=== PATIENT | female | born 1940 | race Caucasian/White ===

== ENCOUNTER → 2018-03-01 | Outpatient (CLI) | payer MEDICARE ==
[~2018-03-01] MED LIST: ASPI-496 PO; CHOL10003 PO; CITA40TA5 PO; KRIL1CAP18 PO; LEVO100T5 PO; LEVO75TA PO; LOSA1TAB25 PO; LOSA25TA5 PO; METF500T5 PO; MULT-224 PO; OMEP-110 PO; POTA99TA3 PO; TOLT2CAP22 PO; TRAM50TA2 PO; VITA1TAB19 PO
[2018-03-01 09:39] LABS: BASOPHILS # (AUTO) 0.02 x10^3/uL (0-0.1); BASOPHILS % (AUTO) 0 % (0-1); EOSINOPHILS # (AUTO) 0.27 x10^3/uL (0-0.4); EOSINOPHILS % (AUTO) 3 % (1-7); LYMPHOCYTES # (AUTO) 1.56 x10^3/uL (1-3.4); LYMPHOCYTES % (AUTO) 16 % (22-44); MD NO; MEAN CORPUSCULAR HEMOGLOBIN 28.3 pg (27.0-34.8); MEAN CORPUSCULAR HGB CONC 34.1 g/dL (32.4-35.8); MEAN CORPUSCULAR VOLUME 83.1 fL (80-100); MEAN PLATELET VOLUME 9.3 fL (7.4-10.4); MONOCYTES # (AUTO) 0.62 x10^3/uL (0.2-0.8); MONOCYTES % (AUTO) 6 % (2-9); NEUTROPHILS # (AUTO) 7.41 x10^3/uL (1.8-6.8); NEUTROPHILS % (AUTO) 75 % (42-75); PLATELET COUNT 301 x10^3/uL (130-400); RED BLOOD COUNT 5.48 x10^6/uL (3.82-5.3); RED CELL DISTRIBUTION WIDTH 15.1 % (9.6-15.2)
[2018-03-01 09:48] LABS: MICROSCOPIC INDICATED
[2018-03-01 09:51] LABS: ANION GAP 9 mmol/L (5-15); CHLORIDE 99 mmol/L (98-107); CREATININE 0.89 mg/dL (0.55-1.02)
[2018-03-01 09:52] LABS: ALANINE AMINOTRANSFERASE 24 U/L (12-78); ALBUMIN 3.8 g/dL (3.4-5.0)
[2018-03-01 09:54] LABS: ALKALINE PHOSPHATASE 81 U/L (45-117); BILIRUBIN,TOTAL 0.5 mg/dL (0.2-1.0); INTERNATIONAL NORMALIZED RATIO 0.96 (0.93-1.1); TOTAL PROTEIN 7.8 g/dL (6.4-8.2)
[2018-03-01 10:07] LABS: CULTURE INDICATED? YES
== END | disposition home or self-care (01) ==
LOC: STAR 08:25
PROVIDERS: ATTEND Neurological Surgery
DX: Z01.818 Encounter for other preprocedural examination (principal); M48.062 Spinal stenosis, lumbar region with neurogenic claudication; M43.06 Spondylolysis, lumbar region
CPT/HCPCS: 36415; 71046; 72114; 80053; 81001; 85025; 85610; 85730; 87086; 87186; 93005

== ENCOUNTER 2018-03-10 08:49 | Inpatient (IN) | payer MEDICARE ==
[2018-03-08 11:48] LABS: CULTURE INDICATED? NO; MICROSCOPIC NOT IND
[~2018-03-10] VITALS: Ht 157.5 cm; Wt 82.0 kg
[2018-03-10] MEDS ORDERED: BUPIVACAINE/PF-EPI 0.25% 1:200K ONE (09:11)
[2018-03-10] MEDS ORDERED: BACITRACIN 50,000 UNIT ONE (09:11)
[2018-03-10] MEDS ORDERED: BACITRACIN OINT 500U/GM, 15 GM ONE (09:11)
[2018-03-10] MEDS ORDERED: THROMBIN 5,000 UNIT VIAL TP ONE (09:11)
[2018-03-10] MEDS ORDERED: BUPIVACAINE 0.25% ONE (09:11)
[2018-03-10] MEDS ORDERED: MIDAZOLAM 1 MG/ML, 2ML ONE (10:25)
[2018-03-10] MEDS ORDERED: FENTANYL PF 100 MCG/2ML ONE ×2 (10:25→12:50)
[2018-03-10] MEDS ORDERED: PROPOFOL 50 ML ONE ×2 (10:27→11:32)
[2018-03-10] MEDS ORDERED: BUPIVACAINE/PF-EPI 0.5% 1:200K IM ONE (11:00)
[2018-03-10] MEDS ORDERED: BUPIVACAINE/PF-EPI 0.25% 1:200K IM ONE (11:00)
[2018-03-10] MEDS ORDERED: ROCURONIUM 10MG/ML,5ML ONE (11:05)
[2018-03-10] MEDS ORDERED: PROPOFOL 10 MG/ML, 20ML ONE (11:05)
[2018-03-10] MEDS ORDERED: DEXAMETHASONE 4 MG/ML, 1ML ONE (11:05)
[2018-03-10] MEDS ORDERED: ONDANSETRON 2MG/ML, 2ML ONE (11:05)
[2018-03-10] MEDS ORDERED: SUCCINYLCHOLINE 20 MG/ML, 10ML ONE (11:05)
[2018-03-10] MEDS ORDERED: CEFAZOLIN 1,000 MG ONE (11:05)
[2018-03-10] MEDS ORDERED: BUPIVACAINE/PF 0.5% INFIL ONE (11:09)
[2018-03-10] MEDS ORDERED: BUPIVACAINE/PF 0.25% IM ONE (11:10)
[2018-03-10] MEDS ORDERED: ALBUTEROL SULFATE 2.5 MG/3 ML NPPB PRN (11:30)
[2018-03-10] MEDS ORDERED: OXYcodone 5 MG/5 ML ORAL.SOL UDC PO PRN (11:30)
[2018-03-10] MEDS ORDERED: LABETALOL 5MG/ML, 20ML IV PRN ×2 (11:30→15:00)
[2018-03-10] MEDS ORDERED: ONDANSETRON 2MG/ML, 2ML IV PRN ×2 (11:30→15:00)
[2018-03-10] MEDS ORDERED: HYDROcodone/APAP 7.5-325MG/15ML UDC PO PRN (11:30)
[2018-03-10] MEDS ORDERED: HYDROmorphone 2 MG/ML, 1ML IV PRN (11:30)
[2018-03-10] MEDS ORDERED: ACETAMINOPHEN 325 MG TABLET PO PRN (11:30)
[2018-03-10] MEDS ORDERED: HALOPERIDOL 5 MG/ML IV PRN (11:30)
[2018-03-10] MEDS ORDERED: DIAZEPAM 5 MG/ML, 2ML IVPush PRN (11:30)
[2018-03-10] MEDS ORDERED: EPHEDRINE 50 MG/ML, 1ML IVPush PRN (11:30)
[2018-03-10] MEDS ORDERED: hydrALAzine 20 MG/ML, 1ML IV PRN (11:30)
[2018-03-10] MEDS ORDERED: MEPERIDINE/PF 25MG/0.5ML IVPush PRN (12:00)
[2018-03-10] MEDS ORDERED: OXYcodone 5 MG/5 ML ORAL.SOL UDC ONE (12:49)
[2018-03-10] MEDS ORDERED: ACETAMINOPHEN 650 MG/20.3 ML UDC ONE (12:50)
[2018-03-10] MEDS: FENTANYL PF 100 MCG/2ML IV PRN ×2 (13:10→13:35)
[2018-03-10 14:15] VITALS: BP 97/56
[2018-03-10] MEDS ORDERED: BISACODYL 10 MG SUPP PR PRN (15:00)
[2018-03-10] MEDS ORDERED: D5%-0.9% NACL 1,000 ML IV SCH (15:00)
[2018-03-10] MEDS ORDERED: MAGNESIUM HYDROXIDE 8%, 30ML UDC PO PRN (15:00)
[2018-03-10] MEDS ORDERED: METHOCARBAMOL 750 MG TABLET PO PRN (15:00)
[2018-03-10] MEDS: LABETALOL 5MG/ML, 20ML IV SCH ×2 (15:51→23:00)
[2018-03-10] MEDS: INSULIN REGULAR 100 UNITS/ML, 3ML VIAL SQ-INSULIN SCH ×2 (16:40→20:42)
[2018-03-10] MEDS: metFORMIN 500 MG TABLET PO SCH (16:40)
[2018-03-10] MEDS: SODIUM CHLORIDE 0.9% 1,000 ML IV SCH (16:40)
[2018-03-10] MEDS: OXYcodone/APAP 5/325MG TABLET PO PRN ×2 (18:25→23:50)
[2018-03-10] MEDS: CEFAZOLIN PMX 1GM/50ML 50 ML IVPB SCH (18:25)
[2018-03-10 18:49] VITALS: BP 110/61
[2018-03-10] MEDS: CITALOPRAM 20 MG TABLET PO SCH (20:40)
[2018-03-10] MEDS ORDERED: METH750T87 PO (23:35)
[2018-03-10] MEDS ORDERED: OXYC-302 PO (23:36)
[2018-03-11] VITALS: BP 98/53
[2018-03-11] MEDS: SODIUM CHLORIDE 0.9% 1,000 ML IV SCH ×3 (02:49→23:00)
[2018-03-11] MEDS: CEFAZOLIN PMX 1GM/50ML 50 ML IVPB SCH (02:49)
[2018-03-11] MEDS: DIPHENHYDRAMINE 50 MG/ML, 1ML IVPush PRN ×3 (04:19→21:07)
[2018-03-11 04:42] VITALS: BP 97/58
[2018-03-11] MEDS: LABETALOL 5MG/ML, 20ML IV SCH ×3 (05:31→23:00)
[2018-03-11] MEDS: LEVOTHYROXINE 100 MCG TABLET PO SCH (06:12)
[2018-03-11] MEDS: INSULIN REGULAR 100 UNITS/ML, 3ML VIAL SQ-INSULIN SCH ×4 (06:14→21:00)
[2018-03-11 06:49] VITALS: BP 99/54
[2018-03-11] MEDS: SENNA/DOCUSATE TABLET PO SCH (09:05)
[2018-03-11] MEDS: MULTIVITS,STRESS FORMULA 1 TABLET PO SCH (09:05)
[2018-03-11] MEDS: OXYcodone/APAP 5/325MG TABLET PO PRN ×2 (09:05→16:22)
[2018-03-11] MEDS: MULTIVITAMIN 1 TABLET PO SCH (09:06)
[2018-03-11] MEDS: OMEPRAZOLE 20 MG CAPSULE.DR PO SCH (09:06)
[2018-03-11] MEDS: metFORMIN 500 MG TABLET PO SCH ×2 (09:06→17:11)
[2018-03-11] MEDS: TOLTERODINE LA 2MG CAP.ER.24H PO SCH (09:06)
[2018-03-11] MEDS: LOSARTAN 50MG TABLET PO SCH (09:06)
[2018-03-11] MEDS: HYDROCHLOROTHIAZIDE 12.5 MG CAPSULE PO SCH (09:07)
[2018-03-11] MEDS: ENOXAPARIN 40 MG/0.4 ML SQ SCH (12:30)
[2018-03-11 16:16] VITALS: BP 125/75
[2018-03-11 19:11] VITALS: BP 116/65
[2018-03-11] MEDS: CITALOPRAM 20 MG TABLET PO SCH (20:55)
[2018-03-11] MEDS: HYDROcodone/APAP 5/325 TABLET PO PRN (21:07)
[2018-03-12] MEDS: HYDROcodone/APAP 5/325 TABLET PO PRN ×3 (02:22→14:33)
[2018-03-12 02:30] VITALS: BP 146/68
[2018-03-12] MEDS: LEVOTHYROXINE 100 MCG TABLET PO SCH (05:26)
[2018-03-12] MEDS: DIPHENHYDRAMINE 50 MG/ML, 1ML IVPush PRN (06:43)
[2018-03-12] MEDS: LABETALOL 5MG/ML, 20ML IV SCH (07:00)
[2018-03-12] MEDS: INSULIN REGULAR 100 UNITS/ML, 3ML VIAL SQ-INSULIN SCH ×2 (07:00→11:52)
[2018-03-12 07:26] VITALS: BP 121/71
[2018-03-12] MEDS: HYDROCHLOROTHIAZIDE 12.5 MG CAPSULE PO SCH (07:54)
[2018-03-12] MEDS: MULTIVITAMIN 1 TABLET PO SCH (07:54)
[2018-03-12] MEDS: LOSARTAN 50MG TABLET PO SCH (07:54)
[2018-03-12] MEDS: metFORMIN 500 MG TABLET PO SCH (07:54)
[2018-03-12] MEDS: OMEPRAZOLE 20 MG CAPSULE.DR PO SCH (07:54)
[2018-03-12] MEDS: SODIUM CHLORIDE 0.9% 1,000 ML IV SCH (09:00)
[2018-03-12] MEDS ORDERED: TOLTERODINE LA 4MG CAP.ER.24H ONE (09:33)
[2018-03-12] MEDS: SENNA/DOCUSATE TABLET PO SCH (09:37)
[2018-03-12] MEDS: MULTIVITS,STRESS FORMULA 1 TABLET PO SCH (09:37)
[2018-03-12] MEDS: TOLTERODINE LA 2MG CAP.ER.24H PO SCH (09:38)
[2018-03-12 12:23] VITALS: BP 130/72
[2018-03-12] MEDS: ENOXAPARIN 40 MG/0.4 ML SQ SCH (13:02)
[2018-03-12 15:55] VITALS: BP 136/79
[2018-03-12] MEDS ORDERED: HYDR-3240 PO (16:17)
[2018-03-12] MEDS ORDERED: CYCL-259 PO (16:18)
== END 2018-03-12 16:30 | disposition home or self-care (01) | DRG 460 ==
LOC: SDC 08:49 → 4NOR 08:50 → SDC 14:22 → 4NOR 03-11 11:28 → DCLOUNGE 03-12 16:15
PROVIDERS: ADMIT Neurological Surgery; ATTEND Neurological Surgery
PROC: 4A11X4G Monitoring of Peripheral Nervous Electrical Activity, Intraoperative, External Approach (ICD-10-PCS; 2018-03-10)
PROC: 0SG0071 Fusion of Lumbar Vertebral Joint with Autologous Tissue Substitute, Posterior Approach, Posterior Column, Open Approach (ICD-10-PCS; principal; 2018-03-10 11:30)
DX: M48.062 Spinal stenosis, lumbar region with neurogenic claudication (principal); M47.26 Other spondylosis with radiculopathy, lumbar region; M21.372 Foot drop, left foot; M51.16 Intervertebral disc disorders with radiculopathy, lumbar region
CPT/HCPCS: 72100; 81003; 82962; C1729; J0690; J1100; J1650; J1815; J2250; J2405; J2704; J3010; J3360; J3490; C1762; J0330; J1200; J7030